=== PATIENT | female | born 1965 | race Caucasian/White ===

== ENCOUNTER 2024-01-15 10:59 | Day surgery (SDC) | payer OTHER, SELFPAY ==
[2024-01-15] VITALS (9 sets, daily range): BP systolic 93–115; BP diastolic 54–75; PULSE 53–70; RESP 12–16; TEMP 36.2–36.5; O2SAT 97–100; BMI 21.4
[2024-01-15] MEDS: LACTATED RINGERS 1,000 ML 42 ML IV (11:44)
--- NOTE | 2024-01-15 12:26 | PM.PREOP ---
Pre-operative Note Interval Note History & Physical reviewed/Exam performed by Physician: Yes Changes to H&P: No H&P completed within 30 days and has changed as indicated here:: 12/27/23 ASA Class (for procedural sedation): II
[2024-01-15] MEDS: CEFAZOLIN 2 GM/100 ML PREMIX 100 ML IV (13:05)
[2024-01-15] MEDS: ACETAMINOPHEN IV 1,000 MG/100 ML VIAL 400 MG IV (13:15)
--- NOTE | 2024-01-15 13:35 | SUR.OPER ---
Lithotomy on padded OR bed. [place] Pad Positioner under torso. Head on pillow, arms padded and secured on padded armboards @ <90 degree angle, legs secured in padded yellow fins stirrups. CONFIRMED BY DR. VOGEL & DR. FRANCOIS.
[2024-01-15] MEDS: BUPIVACAINE 0.5% W/ EPI (PF) 30 ML VIAL INJ (13:42)
--- NOTE | 2024-01-15 14:21 | PM.OP.1 ---
Operative Date/Time/Diagnoses Date of procedure: 01/15/24 Time of procedure: 12:40 Pre-op diagnosis: posterior prolapse Post-op diagnosis: same Procedure & Clinicians Procedure: posterior vaginal repair with perineorrhapy Same procedure as scheduled: Yes Indications: symptomatic posterior vaginal prolapse Surgeon: Fadia Manuel Warehouse Shipping Supervisor: Millie Cardenas Anesthesia Type: General Operative Notes Findings: stage 2 posterior prolapse, previously unrecognized stage 2 anterior prolapse reduced to stage 1 with emptying of bladder per barclay catheter at start of procedure Closure Type: primary Specimen(s): none sent Estimated Blood Loss (mL): 25 Procedure in detail: The patient was taken to the operating room, placed on the operating table in the supine position and intubated with LMA.? The patient was then placed in the lithotomy position with her legs in Lavelle stirrups.? The patient was then examined under anesthesia with the above findings, then prepped and draped in a sterile fashion.? A time out was performed. A barclay catheter was placed.? The incisional edges of the planned posterior vaginal incision were marked with straight allis clamps at the level of the hymenal ring bilaterally and at the posterior cervicouterine reflection anteriorly. The posterior vaginal mucosa was infiltrated with 12ml of 0.5% lidocaine with epinephrine.? A V-incision was made at the posterior fourchette.? The posterior vaginal mucosa was incised vertically from hymen to the apex and the mucosa was dissected off the endopelvic fascia.? Rectal exam performed delineating borders of defect; glove changed.? The posterior endopelvic fascia was then serially plicated using 2-0 vicryl with excellent reduction of the rectocele.? The excess vaginal mucosa was then trimmed and reapproximated using 2-0 vicryl in a running locked fashion.? Rectal exam was once again performed confirming absence of suture within the rectal mucosa and satisfactory repair of the defect.?? The skin of the perineal body was marked and excised in a v-shape with apices at level of the hymenal ring.? The skin was sharply undermined and excised at the level of the posterior fourchette.? The bulbous cavernosa muscles were then reapproximated using a 2-0 vicryl in a single figure of eight stitch, followed by closure of perineorrhapy with 4-0 monocryl in standard running fashion. Two fingers were easily passed per the introitus without tension on the underlying repair. All counts correct x2. Vaginal packing impregnated with topical estrace was placed per the vagina. The patient had her legs taken out of stirrups, was extubaed and taken to PACU in stable condition. Complications: none Post-operative Condition: stable Disposition: PACU
--- NOTE | 2024-01-15 15:58 | SUR.PHASEII ---
Pt ready for DC. Resting in bed. Waiting for .
--- NOTE | 2024-01-15 17:05 | SUR.PHASEII ---
Pt DC to home with spouse.
== END 2024-01-15 17:05 | disposition home or self-care (01) ==
PROVIDERS: PCP Family Medicine; Referring Provider Obstetrics & Gynecology; Visit Provider Obstetrics & Gynecology
PROC: (CPT 57250; principal; 2024-01-15 13:30)
DX: N81.6 Rectocele (principal)
CPT/HCPCS: 57250; J0136; J0690; J1100; J1885; J2250; J2405; J2704

== ENCOUNTER 2024-07-01 06:40 | Day surgery (SDC) | payer OTHER, SELFPAY ==
[2024-06-24 10:46] VITALS: BMI 23.0
[2024-07-01] VITALS (12 sets, daily range): BP systolic 80–110; BP diastolic 52–67; PULSE 63–100; RESP 8–18; TEMP 35.8–36.7; O2SAT 96–100; BMI 23.0
--- NOTE | 2024-07-01 | PATH_ITS ---
[facility] Accession Number: [id number] No. of containers..01 Tissue . 01 Material submitted: . uterus - UTERUS,CERVIX,BIALTERAL FALLOPIAN TUBES AND OVAREIS . 01 Diagnosis: UTERUS, CERVIX, BILATERAL FALLOPIAN TUBES AND OVARIES; HYSTERECTOMY AND BILATERAL SALPINGO-OOPHORECTOMY: Uterine weight:41 grams. Mild chronic cervicitis; negative for dysplasia or malignancy. Benign, inactive endometrium with changes consistent with atrophy. Negative for atypia, hyperplasia, or malignancy. Left and right fallopian tubes: Benign, without pathologic abnormalities. Left ovary: Benign ovary with serous cyst, 0.9 cm, without atypia. Background corpus albicans present. Right ovary: Benign ovary with corpus albicans. Negative for atypia or malignancy. [facility] 07/05/2024 1505 Local . 01 Electronically signed: . Mckinley Roy MD, Pathologist NPI- [id number] . 01 Gross description: . Received in formalin with two patient identifiers and uterus, bilateral fallopian tubes, and ovaries and cervix, is an intact uterus (41 grams, 6.2 cm superior to inferior, 4.7 cm medial to lateral, and 2.5 cm anterior to posterior) with attached cervix (3.0 x 2.9 cm), left fallopian tube (5.3 x 0.6 cm), left ovary (1 grams, 2.2 x 1.3 x 0.8 cm), right fallopian tube (6.0 x 0.6 cm), and right ovary (3 grams, 3.2 x 2.0 x 0.9 cm). . The ectocervix is davis, smooth and glistening with a circular os 0.4 cm in diameter. The anterior paracervical margin is inked blue while the posterior paracervical margin is inked black. The serosa is davis and smooth with no evidence of hemorrhage or adhesion identified. . The endocervical canal has davis herringbone mucosa and measures 2.1 cm in length. The endometrial cavity measures 2.1 cm from cornu to cornu and 3.0 cm in length with davis, velvety endometrium that averages less than 0.1 cm thick. The myometrium is davis and moderately trabecular measuring up to 1.2 cm in maximum thickness with no nodules or lesions identified. Both tubes have violaceous, smooth serosa with no cysts identified. The lumen are stellate and unremarkable. . Both ovaries have a davis, cerebriform external surface, and sectioning reveals the left ovary to have a single unilocular smooth-walled cyst measuring 0.9 cm in greatest dimension and filled with clear serous fluid. No additional lesions identified. The right ovary has an unremarkable physiologic cut surface. . Gem Stone Cutter sections are submitted as follows: A1: Anterior and posterior cervix. A2: Anterior full thickness section. A3: Posterior full thickness section. A4: Left fallopian tube to include one-half of bisected fimbriae and cross sections. A5: Left ovary. A6: Right fallopian tube to include one-half of bisected fimbriae and cross sections. A7: Right ovary. ([id number]) /MRV 07/04/2024 1409 Local . 01 Pathologist provided ICD-10: N83.202, N81.10 . 01 CPT . 710081 Specimen Comment: A courtesy copy of this report has been sent to [facility] Pathology Performed at: [address] [address], [place], [place] [id number] MD Napoleon Sahu MD Phone: [phone]
[2024-07-01] MEDS: ACETAMINOPHEN 325 MG TABLET 975 MG PO (06:59)
[2024-07-01] MEDS: LACTATED RINGERS 1,000 ML 42 ML IV ×2 (07:04→10:11)
--- NOTE | 2024-07-01 07:13 | PM.PREOP ---
Pre-operative Note Interval Note History & Physical reviewed/Exam performed by Physician: Yes Changes to H&P: No H&P completed within 30 days and has changed as indicated here:: 06/05/24 ASA Class (for procedural sedation): II
[2024-07-01 07:45] LABS: Add Manual Diff / Slide Review NO; Basophils Absolute Auto 0 /uL (0-100); Basophils Percent Auto 0.8 % (0-2); Eosinophils Absolute Auto 300 /uL (0-450); Eosinophils Percent Auto 8.3 % (2-4); Hematocrit 44.6 % (36-46); Hemoglobin 15.5 g/dL (12.0-16.0); Lymphocytes Absolute Auto 1500 /uL (1100-4500); Lymphocytes Percent Auto 42.1 % (25-40); Mean Corpuscular HGB Conc 34.7 % (30-36); Mean Corpuscular Volume 98.1 fL (80-100); Monocytes Absolute Auto 200 /uL (0-900); Monocytes Percent Auto 6.2 % (3-14); Neutrophils Absolute Auto 1500 /uL (1500-7000); Neutrophils Percent Auto 42.6 % (50-75); Platelet Count 175 X10^3/uL (150-400); Red Blood Cell Count 4.55 X10^6/uL (4.0-5.2); Red Cell Distribution Width 12.9 % (11.6-14.8); White Blood Cell Count 3.6 X10^3/uL (4.5-11.0)
[2024-07-01] MEDS: CEFAZOLIN 2 GM/100 ML PREMIX 100 ML IV (07:54)
--- NOTE | 2024-07-01 08:31 | SUR.OPER ---
Lithotomy on padded OR bed. [place] Pad Positioner under torso. Head on pillow, arms padded and tucked at sides. Legs secured in padded yellow fins stirrups.
[2024-07-01] MEDS: BUPIVACAINE 0.5% W/ EPI (PF) 30 ML VIAL INJ (08:46)
--- NOTE | 2024-07-01 11:44 | PM.OP.1 ---
Operative Date/Time/Diagnoses Date of procedure: 07/01/24 Time of procedure: 07:45 Pre-op diagnosis: symptomatic POP, PERCY Post-op diagnosis: same Procedure & Clinicians Procedure: total laparoscopic hysterectomy with bilateral salpingo-oophorectomy, anterior vaginal repair, transvaginal tape mid-urethral sling, sacrospinous ligament fixation, cystoscopy Same procedure as scheduled: Yes Indications: recurrent symptomatic stage 2 POP with stress urinary incontinence Surgeon: Fadia Manuel Printer Floor Covering Assistant: Ren Simmons Click Yes if Unassisted: No Anesthesia Type: General Operative Notes Findings: stage 2 anterior vaginal prolapse with urethral hypermobility grossly normal intra-abdominal survey Closure Type: primary Specimen(s): other (uterus, cervix, bilateral fallopian tubes and ovaries ) Estimated Blood Loss (mL): 50 Procedure in detail: The patient was taken to the operating room, placed on the operating table in the supine position and intubated with ETT.? The patient was then placed in the lithotomy position with her legs in Lavelle stirrups.? The patient was then examined under anesthesia with the above findings, then prepped and draped in a sterile fashion.? A barclay catheter was placed.? Time out was performed. A sterile speculum was inserted into the vagina.? The anterior cervix was grasped with single tooth tenaculum and under gentle traction a single stitch using 2-0 vicryl was placed.? This suture was then fed through the colpotomy cup of the V-care manipulator for purposes of anchoring.? The uterus was sounded to 7cm and the VCare manipulator was placed in the standard fashion and the balloon was inflated.? Speculum was removed. Attention was then turned to the abdominal portion of the case. Prior to all incisions the epidermis was superficially infiltrated with 0.25% marcaine with epinephrine for local analgesia. A 5mm incision was made infraumbilically and abdominal entry was achieved under direct visualization using the 5mm VisaPort trocar.? Abdomen was insufflated to 15mmHg.? Two lateral 5-mm ports were placed in a similar manner under direct visualization.? The uterus was anteverted and abdominal survey was noted with findings as noted above. The left infundibulopelvic ligament was identified and elevated using the atraumatic grasper. The Powerseal was used to burn and ligate the IP taking great care to avoid thermal injury to the ureter. The left ovary was then undermined and further dissected away from the mesosalpinx along with the fallopian tube to the level of the cornua. The utero-ovarian artery was burned and ligated followed by dissection of the round ligament with the Powerseal device.? This dissected was carried inferiorly to the level of the cervix with development of a bladder flap. The left uterine artery was skeletonized and then burned and transected using the Powerseal under direct visualization. This was repeated on the contralateral side.? The uterus was noted to nakia with interruption of blood supply. The monopolar hook was then used to transect the vagina at the level of the cervix amputating the specimen from the vagina circumferentially. Pneumoperitoneum was then vented and specimen was removed en bloc via the vagina and passed off the field for permanent study. Attention was then turned the vaginal portion of the case. A large weighted speculum was placed in the vagina. The uterosacral ligaments were identified and grasped using wide allis clamps bilaterally. The vaginal cuff was then closed using 0-0 vicryl in serial figure of eight suture with incorporation of the uterosacaral ligaments in modified McCaul culdoplasty. The vaginal apex was identified and the anterior vaginal mucosa was infiltrated with 10cc 0.25% marcaine with epinephrine for purposes of hydro-dissection coupled with local hemostasis.? The vaginal mucosa was incised in the midline from the apex to the UV angle.? The vaginal mucosa was sharply dissected off of the endopelvic fascia to the sidewall.? The pubourethral fascia at the UV angle was identified and a Michelle plication stitch was placed.? The anterior endopelvic fascia adjacent to the pelvic sidewall was serially plicated with 2-0 vicryl in a distal to proximal fashion with noted excellent elevation of the bladder.? The observed reduction of cystocele the excess vaginal mucosa was trimmed, after which the incision was closed primarily with 2-0 vicryl in a running locked fashion. Complications: none Post-operative Condition: stable Disposition: PACU Plan for aftercare: anticipate dc to home POD1 pending recovery, clinical course
[2024-07-01] MEDS: ONDANSETRON 4 MG/2 ML INJ IV (12:39)
[2024-07-01] MEDS: SODIUM CHLORIDE 0.9% 1,000 ML 100 ML IV ×2 (12:39→22:03)
[2024-07-01] MEDS: ACETAMINOPHEN 325 MG TABLET 650 MG PO ×2 (13:33→19:37)
[2024-07-01] MEDS: SENNOSIDES 8.6 MG TABLET PO ×2 (13:34→20:04)
--- NOTE | 2024-07-01 14:39 | PC.NURSE ---
Patient brought up from PACU approx 1210, oriented to room and call light. VSS. Denies pain at this time. 3 lap sites to abdominal and 2 puncture sites to lower pubic area CDI with skin glue in place no drainage or bleeding noted. Antonio in place draining clear yellow urine. Patient declines lunch at this time, drinking water and eating a few crackers. Continue to monitor.
[2024-07-01 16:05] LABS: Add Manual Diff / Slide Review NO; Basophils Absolute Auto 0 /uL (0-100); Basophils Percent Auto 0.3 % (0-2); Eosinophils Absolute Auto 0 /uL (0-450); Hemoglobin 14.3 g/dL (12.0-16.0); Lymphocytes Absolute Auto 400 /uL (1100-4500); Lymphocytes Percent Auto 4.4 % (25-40); Mean Corpuscular HGB Conc 33.9 % (30-36); Mean Corpuscular Hemoglobin 33.9 PG (26-34); Mean Corpuscular Volume 99.7 fL (80-100); Monocytes Absolute Auto 200 /uL (0-900); Monocytes Percent Auto 2.3 % (3-14); Neutrophils Absolute Auto 8200 /uL (1500-7000); Platelet Count 163 X10^3/uL (150-400); Red Blood Cell Count 4.21 X10^6/uL (4.0-5.2); Red Cell Distribution Width 12.8 % (11.6-14.8); White Blood Cell Count 8.8 X10^3/uL (4.5-11.0)
[2024-07-01] MEDS: KETOROLAC 30 MG/ML VIAL IV ×2 (16:58→22:04)
[2024-07-02] VITALS: BP 94/59; PULSE 78; RESP 16; TEMP 36.2; O2SAT 94
[2024-07-02 04:00] VITALS: BP 94/52; PULSE 71; RESP 17; TEMP 36.6; O2SAT 95
[2024-07-02] MEDS: KETOROLAC 30 MG/ML VIAL IV (05:48)
[2024-07-02] MEDS: ACETAMINOPHEN 325 MG TABLET 650 MG PO (05:48)
--- NOTE | 2024-07-02 07:59 | PM.DS.1 ---
History of Present Illness History of Present Illness Date Patient Seen: 07/02/24 Time Patient Seen: 07:15 Date of Onset of Symptoms: 07/01/24 Chief complaint: POD1 s/p LAVH with anterior repair, TVT, SSLF Narrative: Pt resting comfortably in bed, states pain well controlled with non-narcotic analgesia. NAEON per RN, barclay and vaginal packing in place this AM. Tolerating diet, +flatus. Desires discharge to home Discharge Providers Provider Date of admission: 06/21/24 Discharge Date: 07/02/24 Primary care physician: Jos Davis DO Discharge provider: Fadia Manuel MD Summary Hospital Course Discharge Diagnosis: s/p LAVH with anterior repair, TVT, SSLF Hospital Course: 58yo with symptomatic recurrent stage 2 POP admitted to facility for scheduled procedure, LAVH with anterior repair/TVT/SSLF. Patient underwent procedure as scheduled without complication, EBL 200cc with negative cystoscopy. Pt had an uncomplicated postoperative course with full ROBF and adequate analgesia by morning of POD1. Vaginal packing removed and pt able to void with adequate emptying following discontinuation of barclay catheter. Patient was discharged to home with routine precautions, f/u as scheduled in office for routine postoperative assessment. Status at Discharge Cognitive/behavioral status at discharge: oriented Functional status at discharge: independent ambulation Overall status at discharge: patient is back to baseline Exam Vital Signs (past 8 hours): - 07/02/24 00:00 07/02/24 04:00 Temperature 97.2 F L 97.9 F Pulse Rate 78 71 Respiratory Rate 16 17 Blood Pressure 94/59 L 94/52 L Pulse Oximetry 94 95 Oxygen Flow Rate 0 0 Oxygen Delivery Method Room Air Oxygen Flow Rate 0 Const General: cooperative, healthy appearing and comfortable Nutritional Appearance: average body habitus Orientation: alert, awake and oriented x3 Limitations: mental status not altered HENMT Head: normal to inspection Resp Effort & Inspection: normal respiratory effort and able to speak in complete sentences Cardio Pulses: normal peripheral pulses GI Inspection: normal to inspection Other: trocar insertion sites c/d/i Other: vaginal packing removed, <25% saturation noted barclay in place Skin General: no rashes or lesions noted Neuro General: patient alert, patient awake and patient oriented x3 Extrem General: normal to inspection Psych Mental Status: mental status grossly normal Judgment: judgment good Objective Labs 07/01/24 15:55 Labs: Laboratory Results - last 24 hr 07/01/24 07/01/24 07:28 15:55 WBC 8.8 D RBC 4.21 Hgb 14.3 Hct 42.0 MCV 99.7 MCH 33.9 MCHC 33.9 RDW 12.8 Plt Count 163 Neut % (Auto) 93.0 H D Lymph % (Auto) 4.4 L D [place] % (Auto) 2.3 L Eos % (Auto) 0.0 L Baso % (Auto) 0.3 Neut # (Auto) 8200 H Lymph # (Auto) 400 L [place] # (Auto) 200 Eos # (Auto) 0 Baso # (Auto) 0 Blood Type A Positive Antibody Screen Negative [facility] Medical History (Updated 02/21/24 @ 10:47 by Fadia Manuel MD) Encounter for fitting and adjustment of pessary Incomplete prolapse of anterior wall of vagina Posterior vaginal wall prolapse Allergies Asthma Mumps Chicken pox Bartholin's cyst Human papilloma virus Herpes Garza's esophagus Pulmonary embolism Cervical cancer (~1989) Surgical History (Updated 06/24/24 @ 10:50 by Aleida Staley RN) History of gynecologic surgery (01/15/24) Anesthesia History of bilateral breast implants (~1998) Family History (Updated 12/23/23 @ 15:38 by Antonietta Scott) Father Mental health problem Mother Mental health problem Brother Cancer Social History household members: spouse Smoking Status: Never smoker alcohol intake: current Discharge Assessment & Plan Assessment and Plan Assessment: 58yo POD1 s/p LAVH with anterior repair, TVT, SSLF; doing well uncomplicated postoperative course discharge to home with routine analgesia, outpatient f/u in office as scheduled Discharge Plan Discharge Plan Patient Disposition: Home Provider Discharge Comment: Nothing in the vagina for 6 weeks. No tampons, intercourse, douching, swimming in fresh water/pools/hot tubs. Tub baths are ok if the tub is cleaned well first. No lifting >10-15lbs for 6 weeks Discharge orders & Medications Discharge Orders: Discharge (Order); Ordered 07/02/24 Ordered By: Fadia Manuel Prescriptions: New acetaminophen 325 mg Tablet 650 mg PO Q6H Qty: 30 0RF sennosides [senna] 8.6 mg Tablet 8.6 mg PO BID PRN (Reason: constipation) Qty: 14 0RF ibuprofen 600 mg Tablet 600 mg PO Q6H Qty: 30 0RF oxycodone 5 mg Tablet 5 mg PO Q4HR PRN (Reason: Pain, Moderate (4-6)) Qty: 12 0RF Continued fluticasone propion-salmeterol 113-14 mcg/actuation aerosol powdr breath activated 1 inh inhalation BID omeprazole 40 mg capsule,delayed release(DR/EC) 40 mg PO DAILY sennosides [senna] 8.6 mg tablet 8.6 mg PO BEDTIME PRN (Reason: constipation) Qty: 10 0RF Discontinued estradiol [Estrace] 0.01 % (0.1 mg/gram) cream 1 appful vaginal DAILY Qty: 42.5 3RF Rx Instructions: place 1.5cm (1g) cream to area as directed by your doctor. Use nightly for 7 days, then decrease to twice weekly thereafter omeprazole 40 mg capsule,delayed release(DR/EC) 40 mg PO DAILY No Action estradiol [Vivelle-Dot] 0.0375 mg/24 hr patch semiweekly 1 patch transdermal 2XW Qty: 8 3RF Rx Instructions: apply 1 patch for 3 days alternating with 1 patch for 4 days each week Follow up/Referrals: Jos Davis DO [Primary Care Provider] - Diet/Activity/Treatments Diet: Regular Skin/Wound/Dressing Care Report to your healthcare provider any signs of infection, such as:: chills, fever, increased pain, unusual drainage and unusual redness Visit Report/Discharge Packet Instructions: DI for Hysterectomy, DI for Laparoscopy, DI for Prescription Opioid Use Stand Alone Forms: Patient Portal/API Discharge Data Primary Care Provider: Jos Davis Attending Provider: Fadia Manuel VTE Deep Vein Thrombosis/Pulmonary Embolism Present on Admission: No
[2024-07-02 08:03] VITALS: BP 109/52; PULSE 61; RESP 16; TEMP 36.7; O2SAT 97
--- NOTE | 2024-07-02 08:57 | CM.DANOTE ---
DCP Assessment note pt is a 58yo F here POD1 planned hysterectomy with Dr. Manuel PCP Jos Torres and self pay PRINCIPAL JAVA DEVELOPER reviewed EMR. PRINCIPAL JAVA DEVELOPER entered room and introduced self and role. pt pleasant and chatty, walking around room. Lives with spouse Gabriel on [place]. pt indep/active at baseline. Eager to dc home. Denies any CM/DCP needs at this time. Spouse plans to FLY her home in their plane, says it's faster than the ferries. P: anticipate dc home today with spouse to transport via personal plane. no identified barriers to safe dc home at this time. CM team will continue to follow as needed JOSHUA Stone Discharge Planning/Care Management Advanced directive, confirm from FAMILY Start: 07/01/24 13:11 Freq: Q24H Status: Active Protocol: Document 07/01/24 13:11 CLP (Rec: 07/01/24 14:35 CLP [id number]) Advance Directive, confirm on record Time 12:30 Person contacted patient Copy received No CM Discharge Assessment Start: 07/02/24 08:55 Freq: Status: Active Protocol: Document 07/02/24 08:55 SL (Rec: 07/02/24 08:57 SL [id number]) Discharge Planning Assessment Assigned Mark Up Designer JOSHUA Vidal DPOA/Assigned Designee Name Amanda Rios Contact Information [phone] Advance Directives? Yes Advance Directives on File No History Provided By Patient Prior Living Arrangements House Household Members spouse Type of transporation used prior to Drives own vehicle admit Independent with ADL's Yes Is patient alert and oriented? Yes Barriers to Discharge No Discharge Plan Home Transportation Arrangement spouse with personal plane Referrals Initiated None needed Whiteboard Updated in Patient Room with No name and ext. # of Mark Up Designer Review Status In Process Please Provide Date Initial DC 07/02/24 Assessment Was Performed Next Review Type Continued Stay Review Pre-Anesthesia Assessment Start: 06/24/24 10:46 Freq: Status: Active Protocol: Document 06/24/24 10:46 CAB (Rec: 06/24/24 10:50 CAB [id number]) Pre-Anesthesia Assessment PAC Comment Chart review Patient Information Reviewed Via Chart Review Seen Specialist in Last 12 Months Yes Specialist Seen Construction Sales Representative Primary Language Upper Sorbian Beam Department Supervisor Required No Height 170.18 cm Weight 66.678 kg Body Mass Index (BMI) 23.0 Hx Anesthesia Reactions No Hx Family Anesthesia Reaction No Hx Malignant Hyperthermia No Hx Blood Transfusion Reaction No Anesthesia Review Requested No Agribusiness Professor No Smoking Status Never smoker Patient is completely paralyzed or No completely immobile Mental Status Oriented to own ability Is patient on oxygen? No Hx Sleep Apnea No CPAP/BIPAP use not prescribed Currently Taking a Beta Frank No Has a Career Manager No Cardiac Testing No Hx Pacemaker/ICD No Pacemaker Rep Required? No Cardiac Clearance Received No Urinary Catheter Present No Hx Urinary Self Catheterization No Diabetes No Patient No Lactating No Presence of External or Internal Medical No Devices Received a COVID vaccine? Yes Marital Status Lives With spouse Patient Discharge Plan Description Return Home Advance Directives? Yes Power of Internet Sales Director Yes Power of Internet Sales Director Name Gabriel Amor Power of Internet Sales Director
[2024-07-02] MEDS: SENNOSIDES 8.6 MG TABLET PO (09:52)
--- NOTE | 2024-07-02 11:44 | PC.NURSE ---
Paco clemente'ashley this morning at approx 8am. Patient up ad evelyn in room, feeling well and denies complaints. Tolerated breakfast. Patient reports small soft BM this morning and voided 200 in hat plus second void that didn't make it in hat. Discharge orders received and patient eager to go home with her . Discharge instructions and home care handouts reviewed with patient, she has no further questions or concerns at this time. Escorted out via wheelchair with all her belongings by SURGICAL SUPPLIES STERILIZER. Patient will follow up as scheduled with Dr. Manuel. Instructed to call MD with questions or concerns.
== END 2024-07-02 11:20 | disposition home or self-care (01) ==
LOC: OR 06:41 → AC 06:41
PROVIDERS: PCP Family Medicine; Referring Provider Obstetrics & Gynecology; Visit Provider Obstetrics & Gynecology
PROC: 0UT9FZZ Resection of Uterus, Via Natural or Artificial Opening With Percutaneous Endoscopic Assistance (ICD-10-PCS; CPT 58571; principal; 2024-07-01 07:45)
PROC: (CPT 58571; 2024-07-01 07:45)
PROC: 0TSD0ZZ Reposition Urethra, Open Approach (ICD-10-PCS; CPT 58571; 2024-07-01 07:45)
DX: N81.2 Incomplete uterovaginal prolapse (principal); N39.3 Stress incontinence (female) (male)
CPT/HCPCS: 58571; 57240; 36415; 85025; 86850; 86900; 86901; C1771; J0330; J0690; J1100; J1885; J2250; J2405; J2704; J3010; J3490